=== PATIENT | female | born 1945 | race Caucasian/White ===

== ENCOUNTER 2017-07-02 17:15 | Inpatient (IN) | payer MEDICARE, MEDICAID ==
[2017-07-02] MEDS ORDERED: NAPROSYN500 MG PO (18:03)
[2017-07-02] MEDS ORDERED: VALTREX1000 MG PO (18:04)
[2017-07-02] MEDS ORDERED: ZYRTEC10 MG PO (18:04)
[2017-07-02] MEDS ORDERED: SYNTHROID75 MCG PO (18:05)
[2017-07-02] MEDS ORDERED: TOPROL XL50 MG PO (18:06)
[2017-07-02] MEDS ORDERED: CYMBALTA30 MG PO (18:07)
[2017-07-02] MEDS ORDERED: XANAX0.5 MG PO (18:08)
[2017-07-02] MEDS ORDERED: BIOTIN5 MG PO (18:11)
[2017-07-02] MEDS ORDERED: ELAVIL75 MG PO (18:13)
[2017-07-02] MEDS ORDERED: AMBIEN10 MG PO (18:14)
[2017-07-02] MEDS ORDERED: LYRICA150 MG PO (18:15)
[2017-07-02] MEDS ORDERED: ZOFRAN4 MG PO (18:17)
[2017-07-02] MEDS ORDERED: OXYBUTYNIN CHLOR5 MG PO (18:18)
[2017-07-02] MEDS ORDERED: BAYER CHEWABLE81 MG PO (18:23)
[2017-07-02] MEDS ORDERED: NORVASC5 MG PO (18:23)
[2017-07-02] MEDS ORDERED: LIPITOR20 MG PO (18:24)
[2017-07-02] MEDS ORDERED: PEPCID20 MG PO (18:25)
[2017-07-02] MEDS ORDERED: CLARITIN 10 MG10 MG PO (18:26)
[2017-07-02] MEDS ORDERED: LOVENOX40 MG/0.4 SC (18:27)
[2017-07-02] MEDS ORDERED: TOPROL XL25 MG PO (18:29)
[2017-07-02 20:25] LABS: BASOPHILS 0.3 % (0-2); EOSINOPHILS 4.4 % (0-7); HEMOGLOBIN 11.1 g/dL (12-16); IMMATURE GRANULOCYTES 0.2 % (0-5); LYMPHOCYTES 22.5 % (15-50); MCH 27.5 pg (26.0-34.0); MCHC 32.6 g/dL (31.0-37.0); MCV 84.4 fL (80.0-100.0); MEAN PLATELET VOLUME 10.5 fL (7.4-10.4); MONOCYTES 15.4 % (2-11); NEUTROPHILS 57.2 % (40-80); PLATELET COUNT 230 10x3/uL (130-400); RBC 4.03 10x6/uL (4.00-5.40); RDW 17.2 % (11.5-14.5); WBC 6.2 10x3/uL (4.8-10.8)
[2017-07-02 20:40] LABS: HEMOGLOBIN A1C 6.1 % (4.8-6.0)
[2017-07-02 20:46] LABS: ALBUMIN 3.5 g/dL (3.4-5.0); ANION GAP 13.7 mmol/L (8-16); BILIRUBIN - TOTAL 0.2 mg/dL (0.2-1.3); CALCIUM 8.7 mg/dL (8.5-10.1); CARBON DIOXIDE 26.5 mmol/L (21.0-32.0); CHOL - HDL RATIO 3.9 ratio (2.3-4.1); LDL-HDL RATIO 2.6 ratio (1.5-3.5); POTASSIUM - SERUM 4.2 mmol/L (3.5-5.1); PROTEIN - SERUM 6.6 g/dL (6.4-8.2); THYROID STIMULATING HORMONE 10.37 uIU/mL (0.36-3.74)
[2017-07-02 22:18] VITALS: BP 122/65; BMI 26.5
--- NOTE | 2017-07-03 02:47 | NUR ---
Patient arrived via EMS at 19:30 from , patient had attempted suicide by ingestion of 15 Ambian tablets, code word Nibbler, code status Full Code, family and physian aware of admition, consents signed and oriented to unit, contracted for safety, will continue to monitor.
[2017-07-03 08:42] VITALS: BP 101/51
--- NOTE | 2017-07-03 10:58 | NUR ---
B) PATIENT IS AWAKE AND ALERT, ORIENTED X 3, SHE DOES HAVE SOME CONFUSION AND POOR SHORT TERM MEMORY RECALL AND SAYS SHE SOMETIMES FORGETS. SHE ADMITS TO BEING DEPRESSED. SHE IS WONDERING ABOUT HER MEDICATIONS SHE BROUGHT FROM HOME, WILL CHECK ON THAT FOR HER. SHE AMBULATES INDEPENDENTLY, SHE IS SOCIALIZING WITH ANOTHER PATIENT CURRENTLY AND THEY ARE DISCUSSING BEING SINGLE LIVING ALONE. PATIENT CONTRACTS FOR NO SELF HARM, BUT SHE REMAINS SAD. I) PROVIDE PRESCRIBED MEDS. R) PATIENT IS COMPLIANT WITH MEDS AND UNIT MILIEU.
[2017-07-03 19:30] VITALS: BP 106/79
--- NOTE | 2017-07-04 04:33 | NUR ---
B) PATIENT IS ALERT AND ORIENTED, WORRIED ABOUT HER MEDICATION SHE HAD AT [facility], NO S.I. THIS SHIFT, CONTRACTS FOR SAFETY, I) ADMINISTERED SCHEDULED MEDICATIONS, MONITORED FOR SAFETY, R) MEDICATION COMPLIANT, WITHDRAWN, P) CONTINUE PLAN OF CARE.
[2017-07-04 07:00] VITALS: BP 120/75
[2017-07-04 08:00] VITALS: Wt 70.0 kg
--- NOTE | 2017-07-04 12:48 | PSY ---
PATIENT NAME:JEANNINE YEPEZ MEDICAL RECORD: [id number] : 49 LOCATION:KAILEE Radha5 ADMISSION DATE: 07/02/17 ACCOUNT: [id number] PSYCHIATRIC EVALUATION DATE OF EVALUATION: 07/03/17 Psychiatric Evaluation IDENTIFYING DATA: The patient is 72 years old and she is admitted to the hospital on a voluntary basis. CHIEF COMPLAINT: Depression. HISTORY OF PRESENT ILLNESS: The patient took an overdose of 15 Ambien tablets. She wrote a suicide note, woke up the next day and then called her daughter and told her, which she had done. The daughter called an ambulance. The patient was brought to the Emergency Room. The patient now says that she sorry she did this and regrets that and is quite she leave. She also endorses numerous neurovegetative depressive symptoms. She denies substance abuse. She denies psychotic symptoms. PAST MEDICAL HISTORY: Significant for fibromyalgia, hypothyroidism, hypertension, hysterectomy and appendectomy. PAST PSYCHIATRIC HISTORY: Significant for previous problems with depression and extensive outpatient treatment. Although she is not seriously about harming herself, this is the most serious act she is engaged in. ALLERGIES: PENICILLIN AND MORPHINE. CURRENT MEDICATIONS: Include Naprosyn, Valtrex, Synthroid, Cymbalta, Xanax, Elavil, biotin, Ambien, Lyrica, Zofran, Ditropan, Norvasc, aspirin, Lipitor, Pepcid, Claritin, Lovenox and Toprol. FAMILY HISTORY: Significant for cardiovascular disease, but none for psychiatric history by her account. SOCIAL HISTORY: The patient is retired. 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 She has been and 3 times. She has 6 kids and multiple grandchildren and great grandchildren. She lives alone. She is experiencing significant financial distress. MENTAL STATUS EXAMINATION: The patient is awake, alert and oriented to person, place and somewhat to time and situation. She is displaying a mood that is depressed and an affect that is constricted. Thought processes are circumstantial. Memory, concentration and abstraction abilities are moderately impaired and she denies any active intent to harm herself or others as well as overt psychotic symptoms. ASSETS: Supportive family members. LIABILITIES: Limited insight. DIAGNOSTIC IMPRESSION: AXIS I: Major depression, severe, recurrent without psychotic features. AXIS II: Deferred. AXIS III: Hypothyroidism, hypertension, osteoarthritis, gastroesophageal reflux disease, hyperlipidemia, and fibromyalgia. AXIS IV: Moderate stressors. AXIS V: Global assessment of functioning is 40. PLAN: At this time, the patient is admitted to the hospital secondary to a suicide attempt. She has a significant depressive illness. She will be treated with both mood stabilizing and antidepressant medications. Her long-term prognosis is guarded. TRANSINT:[id number] Voice Confirmation ID: [id number] DOCUMENT ID: [id number] DANIEL CASTELLANO MD at 1248 CC: [id number] DICTATION DATE: 07/03/17 1004 SINTER MACHINE OPERATOR: 07/03/17 1133 ADM IN [place] [id number] [place] [id number]
--- NOTE | 2017-07-04 16:38 | NUR ---
RECEIVED THIS AM SITTING IN CHAIR IN HALLWAY AT [facility]ES [facility]ATION.ALERT AND ORIENTED .DENIES SUICIDE IDEATION NOW.TEARFUL AT TIMES.ENCOURAGED TO TALK WITH NURSE ANYTIME SHE WANTS TOO.MISSES CATS AT HOME.WILL CONTINUE WITH PLAN OF CARE,MONITOR FOR CHANGES AND SAFETY.
[2017-07-04 19:11] LABS: APPEARANCE TURBID (CLEAR); COLOR YELLOW (YELLOW)
[2017-07-04 19:12] LABS: BILIRUBIN NEGATIVE (NEGATIVE); GLUCOSE NEGATIVE (NEGATIVE); KETONE NEGATIVE (NEGATIVE); LEUKOCYTE ESTERASE 2+ (NEGATIVE); NITRITE POSITIVE (NEGATIVE); PROTEIN TRACE mg/dL (NEGATIVE); UROBILINOGEN NORMAL (NORMAL)
[2017-07-04 19:26] LABS: BACTERIA MANY /hpf (NONE SEEN); EPITHELIAL CELLS 0-5 /hpf (0-5); GRANULAR CAST 0-5 /lpf (NONE SEEN); HYALINE CAST OCC /lpf (NONE SEEN); MUCUS <1+ /lpf (NONE SEEN); RED CELLS - URINE 0-5 /hpf (0-5); WHITE CELLS - URINE >50 /hpf (0-5)
[2017-07-04 19:27] LABS: AMORPHOUS SEDIMENT >1+ /lpf (NONE SEEN)
[2017-07-04 19:30] VITALS: BP 125/69
--- NOTE | 2017-07-04 22:42 | NUR ---
B) Social on unit with select peers. Complains of fibrmyalgia pain, given routine HS analgesics for same. Verbalized missing her cats. Requested to have a shower this evening but now has decided to wait until morning. Guarded with self disclosures. I) Administer medications as ordered, offer 1:1 to verbalize feelings, assess for suicidal ideation and intent. R) Oriented x 4, denies SI but does admit to feeling depressed. Not willing to talk about her stressors this evening. P) Continue to monitor per plan of care.
[2017-07-05 07:00] VITALS: BP 132/65
--- NOTE | 2017-07-05 11:08 | PN ---
PATIENT:JEANNINE YEPEZ MEDICAL RECORD: [id number] LOCATION:KAILEE Latonya112 ADMISSION DATE: 07/02/17 PROGRESS NOTE DATE OF SERVICE: 07/04/2017 SUBJECTIVE: The patient's case was discussed with staff. She has no new complaint. OBJECTIVE: The patient denies intent to harm herself or others. She generally tolerates her medicines well. She has no suicidal thoughts. She slept and ate well and is anxious to be discharged. I have only seen her twice. She did make a serious suicide attempt. I am not going to let her go home today and she did not insist upon it. I will reassess her tomorrow. TRANSINT:[id number] Voice Confirmation ID: [id number] DOCUMENT ID: [id number] DANIEL CASTELLANO MD at 1108 CC: [id number] DICTATION DATE: 07/04/17 1237 TOW TRUCK DRIVER: 07/04/172013 ADM IN [facility] [address] [place] [address]
[2017-07-05] MEDS ORDERED: SYNTHROID150 MCG PO (11:16)
[2017-07-05] MEDS ORDERED: CYMBALTA20 MG PO (11:16)
--- NOTE | 2017-07-05 12:29 | NUR ---
CALM, COOPERATIVE WITH CARE AND ASSESSMENT, SOCIAL WITH PEERS AND STAFF. PRESCRIBED MEDICATIONS GIVEN ORDERED. DENIES ANY SUICIDAL PLANS. WILL CONTINUE TO MONITOR. SCHEDULED FOR DISCHARGE HOME VIA [facility] TODAY. ALL DISCHARGE PAPERWORK REVIEWED WITH PATIENT AND COPY SENT WITH HER. BELONGINGS BAGGED AND ER CALLED FOR VALUABLES IN LOCKUP..
[2017-07-06 07:08] LABS: VITAMIN D 25 HYDROXY 21.6 ng/mL (30.0-100.0)
--- NOTE | 2017-07-06 10:17 | PN ---
PATIENT:JEANNINE YEPEZ MEDICAL RECORD: [id number] LOCATION:KAILEE Sánchez112 ADMISSION DATE: 07/02/17 PROGRESS NOTE DATE OF SERVICE: 07/05/2017 SUBJECTIVE: The patient's case was discussed with staff. She has no new complaint. OBJECTIVE: The patient has a euthymic mood and an appropriate affect. She is fully oriented. She is tolerating her medicines well. ASSESSMENT: Major depression. PLAN: The patient is substantially better since admission and she continues to deny that she would seek to harm herself. She is insisting upon discharge and clearly, she does not meet criteria for an involuntary stay. In addition to not meeting criteria for involuntary state, she is probably close to being ready to go just objectively. She does not want to wait until tomorrow. Based on this, I am just going to go ahead and let her go today. The only real issue I have is her refusal to go to outpatient psychiatric followup. She says that she thinks she will do well if she takes the medication she is on, agrees to no longer taking Ambien or Elavil as I have recommended. She says that if she feels like she needs some additional help, she will need to contact [facility], or she will go to the Emergency Room. This is not what I am recommending, but this is what the patient is willing to do. She does have full capacity to make reasonable informed consent decisions even at those decisions are not what I am going to recommend. I will discharge her today. TRANSINT:[id number] Voice Confirmation ID: [id number] DOCUMENT ID: [id number] DANIEL CASTELLANO MD at 1017 CC: [id number] DICTATION DATE: 07/05/17 1405 BUSINESS MACHINE OPERATOR: 07/05/17 1627 DIS IN 07/05/17 [place] [address] [place] [address]
[2017-07-06 12:11] LABS: FOLATE (FOLIC ACID) - SERUM 7.2 ng/mL (>3.0)
[2017-07-07 03:09] LABS: RAPID PLASMA REAGIN Non Reactive (Non Reactive)
== END 2017-07-05 15:30 | disposition home or self-care (01) | DRG 885 ==
LOC: D.PSYCH 17:15
PROVIDERS: ADMIT Psychiatry & Neurology Psychiatry
DX: F33.2 Major depressive disorder, recurrent severe without psychotic features (principal); T14.91 Suicide attempt; E03.9 Hypothyroidism, unspecified; I10 Essential (primary) hypertension; Z74.09 Other reduced mobility; M19.90 Unspecified osteoarthritis, unspecified site; K21.9 Gastro-esophageal reflux disease without esophagitis; E78.5 Hyperlipidemia, unspecified; M79.7 Fibromyalgia; G47.00 Insomnia, unspecified; D64.9 Anemia, unspecified; J30.9 Allergic rhinitis, unspecified

== ENCOUNTER 2019-01-24 22:31 | Inpatient (IN) | payer MEDICARE ==
[~2019-01-24 22:31] MED LIST: AMBIEN10 MG PO; BAYER CHEWABLE81 MG PO; BIOTIN5 MG PO; CLARITIN 10 MG10 MG PO; CYMBALTA20 MG PO; CYMBALTA30 MG PO; ELAVIL75 MG PO; LIPITOR20 MG PO; LOVENOX40 MG/0.4 SC; LYRICA150 MG PO; NAPROSYN500 MG PO; NORVASC5 MG PO; OXYBUTYNIN CHLOR5 MG PO; PEPCID20 MG PO; SYNTHROID150 MCG PO; SYNTHROID75 MCG PO; TOPROL XL25 MG PO; TOPROL XL50 MG PO; VALTREX1000 MG PO; XANAX0.5 MG PO; ZOFRAN4 MG PO; ZYRTEC10 MG PO
[2019-01-24] MEDS ORDERED: CELEBREX 100 M100 MG PO (23:03)
[2019-01-24] MEDS ORDERED: MONODOX100 MG PO (23:15)
[2019-01-24] MEDS ORDERED: FLUTICASONE PRO16 GM NASAL (23:16)
[2019-01-24] MEDS ORDERED: IPRAT-ALBUT 0.5-3 ML UPD (23:17)
[2019-01-24] MEDS ORDERED: SYNTHROID75 MCG PO (23:18)
[2019-01-24] MEDS ORDERED: DULERA 100 MCG8.8 GM INH (23:19)
[2019-01-24] MEDS ORDERED: PREDNISONE10 MG PO (23:19)
[2019-01-24] MEDS ORDERED: LYRICA150 MG PO (23:20)
[2019-01-25 00:05] LABS: HEMATOCRIT 33.2 % (36.0-48.0); HEMOGLOBIN 10.7 g/dL (12-16); LYMPHOCYTES 27.4 % (15-50); MCH 27.6 pg (26.0-34.0); MCHC 32.2 g/dL (31.0-37.0); MCV 85.8 fL (80.0-100.0); MEAN PLATELET VOLUME 10.8 fL (7.4-10.4); NEUTROPHILS 56.4 % (40-80); PLATELET COUNT 192 10x3/uL (130-400); RBC 3.87 10x6/uL (4.00-5.40); WBC 5.7 10x3/uL (4.8-10.8)
[2019-01-25 00:24] LABS: ALBUMIN 3.1 g/dL (3.4-5.0); ANION GAP 9.2 mmol/L (8-16); BILIRUBIN - TOTAL 0.48 mg/dL (0.2-1.3); CALCIUM 8.4 mg/dL (8.5-10.1); CARBON DIOXIDE 29.5 mmol/L (21.0-32.0); CREATININE - SERUM 0.8 mg/dL (0.6-1.3); POTASSIUM - SERUM 3.7 mmol/L (3.5-5.1); PROTEIN - SERUM 6.6 g/dL (6.4-8.2)
[2019-01-25 00:33] LABS: CHOL - HDL RATIO 2.6 ratio (2.3-4.1); LDL-HDL RATIO 1.2 ratio (1.5-3.5); MAGNESIUM - SERUM 2.3 mg/dL (1.8-2.4)
[2019-01-25 00:57] LABS: THYROID STIMULATING HORMONE 0.84 uIU/mL (0.36-3.74)
--- NOTE | 2019-01-25 01:06 | NUR ---
PT AMBULATED TO RESTROOM WITH ASSISTANCE AND PROVIDED URINE SAMPLE. URINE WAS SENT TO LAB. PT IS CALM AND COOPERATIVE WITH STAFF AT THIS TIME.
[2019-01-25 01:24] LABS: UDS - AMPHET NEGATIVE QUAL (NEGATIVE); UDS - BARB NEGATIVE QUAL (NEGATIVE); UDS - BENZO POSITIVE QUAL (NEGATIVE); UDS - COCAINE NEGATIVE QUAL (NEGATIVE); UDS - OPIATE NEGATIVE QUAL (NEGATIVE); UDS - PCP NEGATIVE QUAL (NEGATIVE); UDS - THC NEGATIVE QUAL (NEGATIVE)
[2019-01-25 01:32] LABS: APPEARANCE CLEAR (CLEAR); BACTERIA FEW /hpf (NONE SEEN); BILIRUBIN NEGATIVE (NEGATIVE); COLOR YELLOW (YELLOW); EPITHELIAL CELLS RARE /hpf (0-5); GLUCOSE NEGATIVE (NEGATIVE); KETONE NEGATIVE (NEGATIVE); NITRITE NEGATIVE (NEGATIVE); PROTEIN NEGATIVE (NEGATIVE); SPECIFIC GRAVITY 1.015 (1.005-1.020); UROBILINOGEN NORMAL (NORMAL); WHITE CELLS - URINE 0-5 /hpf (0-5)
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
[2019-01-25 02:34] VITALS: BP 146/75; BMI 25.7
[2019-01-25 08:15] VITALS: BMI 25.7
[2019-01-25 10:13] VITALS: Wt 65.8 kg
--- NOTE | 2019-01-25 10:15 | NUR ---
RECEIVED PATIENT IN DINING ROOM FOR B'FAST, ALERT, CALM, COOPERATIVE. NO MENTION OF SI THIS MORNING. NIGHT NURSE REPORTED THAT PATIENT STATED THAT SHE HAD NO SUICIDAL PLAN BUT IF SHE DID PLAN TO KILL SELF, SHE WOULD TAKE PILLS. STATED THAT SHE HAD ENOUGH PILLS AT HOME TO KILL A HORSE. PARTICIPATING IN GROUP THERAPY. CONT POC INCLUDING MEDICATIONS AND GROUP THERAPY DIRECTED.
[2019-01-25 19:53] VITALS: BP 138/74
--- NOTE | 2019-01-25 20:47 | NUR ---
RECEIVED IN DAYROOM. SITTING AND SOCIALIZING WITH HER PEERS. CALM AND COOPERATIVE WITH CARE AND ASSESSMENT. DENIES HAVING THOUGHTS OF SELF HARM AT THIS TIME. ENCOURAGE TO EXPRESS NEEDS. REDIRECT AND REORIENT NEEDED. CONTINUES TO SOCIALIZE WITH PEERS AT THIS TIME. CONTINUE PLAN OF CARE.
[2019-01-26 08:17] LABS: FOLATE (FOLIC ACID) - SERUM 13.3 ng/mL (>3.0)
[2019-01-26 08:23] VITALS: BP 96/56
--- NOTE | 2019-01-26 16:00 | NUR ---
ORIENTED X 4.DENIES THOUGHTS OF HARMING SELF NOW.STATES SHE ADMITTED SELF TO HOSPITAL BECAUSE SHE DIDN'T WANT TO TAKE ANY CHANCES THAT SHE MIGHT HURT SELF.STATES SHE FEELS MUCH BETTER NOW BECAUSE SHE IS GOING TO GET HELP WITH GETTING HER ANOTHER PLACE TO LIVE.STATES "I KNOW MY DAUGHTER WOULDN'T ACT THAT WAY IF I WASN'T LIVING THERE.IS COMPLIANT WITH STAFF AND MEDS.WILL CONTINUE WITH PLAN OF CARE,MONITOR FOR CHANGES AND SAFETY.
[2019-01-26 20:20] VITALS: BP 125/68
--- NOTE | 2019-01-27 04:42 | NUR ---
B) Patient is alert and oriented X 4, calm and cooperative this shift, I) Administered scheduled medications as ordered, monitored for safety, R) Mediation compliant, no S.I. this shift, P) Continue plan of care.
[2019-01-27 09:26] VITALS: BP 107/62
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
--- NOTE | 2019-01-27 16:55 | NUR ---
IS ORIENTED X 4.THIS AM WAS ARGUMENTIVE WITH THIS NURSE REGARDING LYRICA.NURSE ATTEMPTED TO EXPLAIN ORDERED SCHEDULE,BUT SHE WOULD NOT LET IT GO.ASSURED HER I WOULD HAVE SCHEDULE CHANGED TO EVERY 8 HOURS.COMPLIANT WITH MEDS.VISITS WITH PEERS.WILL CONTINUE WITH PLAN OF CARE,MONITOR FOR CHANGES AND SAFETY.
[2019-01-27 19:20] VITALS: BP 135/68
--- NOTE | 2019-01-27 21:31 | NUR ---
PATIENT HAS A FLAT AFFECT, INTERACTS WITH STAFF MINIMALLY, ORIENTED, DENIES S/I, COMPLIANT WITH MEDS, NO ADVERSE REACTION NOTED. ABLE TO MAKE NEEDS KNOWN, [facility] CONTACT. WILL FOLLOW POC
[2019-01-28 10:04] VITALS: BP 109/65
--- NOTE | 2019-01-28 10:11 | NUR ---
RECEIVED PATIENT IN DINING ROOM FOR B'FAST, ALERT, CALM, COOPERATIVE. STATED THAT SHE MUST HAVE GAINED WEIGHT SINCE HER ADMISSION BECAUSE HER PANTS ARE TIGHT. MEDS ADMIN PER ORDERS WITH COMPLETE MED COMPLIANCE NOTED. COOPERATIVE WITH GROUP AND STAFF REQUESTS. CONT POC INCLUDING MEDS AND GROUP THERAPY DIRECTED.
--- NOTE | 2019-01-28 10:47 | PN ---
PATIENT:JEANNINE YEPEZ MEDICAL RECORD: [id number] LOCATION:KAILEE Hanks113 ADMISSION DATE: 01/25/19 PROGRESS NOTE DATE OF SERVICE: 01/27/2019 SUBJECTIVE: The patient's case was discussed with staff. She has no new complaint. OBJECTIVE: The patient is disorganized with a depressed mood. She is very angry. Apparently, she was upset with one of the nurses today and said that she would jump out a window. She is on the first floor, but nevertheless she made this statement in a way that was directly implying that she wanted to hurt herself. When asked about this this afternoon, she says that she was just making a joke and a little angry. ASSESSMENT: Major depression. PLAN: The patient will be treated with Cymbalta at a slightly higher dose. I am certainly going to keep her through the weekend and will see her both Wednesday and Wednesday to assess her mood state and response to the increase in her medication that I am ordering today. TRANSINT:[id number] Voice Confirmation ID: [id number] DOCUMENT ID: [id number] DANIEL CASTELLANO MD at 1047 CC: [id number] DICTATION DATE: 01/27/19 1618 APPRENTICESHIP CONSULTANT: 01/27/19 2330 ADM IN [place] [id number] [place] [id number]
--- NOTE | 2019-01-28 19:26 | NUR ---
PATIENT HAS A VERY FLAT AFFECT, POOR EYE CONTACT, INTERACTS MINIMALLY WITH RESIDENTS, DENIES S/I. COMPLIANT WITH MEDS, NO ADVERSE REACTION NOTED. WILL FOLLOW POC
[2019-01-28 20:04] VITALS: BP 135/69
--- NOTE | 2019-01-29 09:00 | NUR ---
RECEIVED PATIENT IN DINING ROOM FOR B'FAST, ALERT, CALM, COOPERATIVE, DENIES SUICIDAL PLAN OR IDEATION. MEDS ADMIN PER ORDERS WITH COMPLETE MED COMPLIANCE NOTED. COOPERATIVE WITH GROUP AND STAFF. CONT POC INCLUDING MEDS AND GROUP THERAPY ORDERED.
--- NOTE | 2019-01-29 09:44 | PN ---
PATIENT:JEANNINE YEPEZ MEDICAL RECORD: [id number] LOCATION:KAILEE Hanks113 ADMISSION DATE: 01/25/19 PROGRESS NOTE DATE OF SERVICE: 01/28/2019 SUBJECTIVE: The patient's case was discussed with staff. She has no new complaint. OBJECTIVE: The patient denies intent to harm herself or others. She generally tolerates her medicines well. ASSESSMENT: No change in diagnoses. PLAN: Current medicines and therapies have been reviewed and will be maintained. Long-term prognosis is guarded. TRANSINT:[id number] Voice Confirmation ID: [id number] DOCUMENT ID: [id number] DANIEL CASTELLANO MD at 0944 CC: [id number] DICTATION DATE: 01/28/19 1106 BEAN WEIGHER: 01/28/19 1136 ADM IN [place] [id number] [place] [address]
[2019-01-29] MEDS ORDERED: CYMBALTA30 MG PO (10:01)
[2019-01-29] MEDS ORDERED: VITAMIN D5000 UNIT PO (10:01)
--- NOTE | 2019-01-29 10:30 | NUR ---
PATIENT'S DAUGHTER PRESENTED TO UNIT DEMANDING THAT HER MOTHER BE RELEASED TODAY. DAUGHTER STATED THAT SHE WAS NOT HAPPY WITH THE CARE THE PATIENT IS RECEIVING, IN PARTICULAR THE FACT THAT SHE HAS TO USE A COMMUNAL TOILET DURING THE DAY. DR CASTELLANO NOTIFIED AND WAS AGREEABLE WITH THE DISCHARGE SINCE THE DISCHARGE HAD ALREADY BEEN SET FOR WEDNESDAY.
--- NOTE | 2019-01-29 10:31 | NUR ---
EXPLAINED TO DAUGHTER THAT IT WOULD TAKE A LITTLE TIME TO PREPARE THE DISCHARGE. DAUGHTER AGREEABLE AND STATED THAT SHE WOULD GO HAVE LUNCH WITH HER BROTHER AND WOULD RETURN SHORTLY THEREAFTER TO FITNESS SUPERVISOR PATIENT.
--- NOTE | 2019-01-29 12:50 | NUR ---
PATIENT'S DAUGHTER HERE TO MOLDER FEEDER PATIENT. PERSONAL BELONGINGS RETURNED TO INCLUDING PURSE, CELL PHONE AND IN TUBE CONVERSION TECHNICIAN, AND CLOTHING THAT SHE WAS WEARING. PATIENT ADMITTED TO BRINGING NO EXTRA ARTICLES OF CLOTHING. ER ADMITTING CALLED TO VERIFY THAT THERE WERE NO ITEMS IN HOSPITAL SAFE. LOCKED CLOSET CHECKED FOR BELONGINGS AND NONE WERE FOUND. DISCHARGE TEACHING DONE WITH DAUGHTER VOICING UNDERSTANDING. NEW PRESCRIPTIONS PHONED IN TO [facility] DUE TO PATIENT'S REGULAR PHARMACY IN [place] BEING CLOSED ON SUNDAYS. UNABLE TO MAKE FOLLOW UP APPOINTMENT WITH DR WHITMORE WELL FAX ANY DISCHARGE PAPERWORK DUE TO THE OFFICE BEING CLOSED ON SUNDAYS. DAUGHTER INSTRUCTED TO MAKE FOLLOWUP APPT WITH DR WHITMORE FOR ONE WEEK FROM NOW WITH DAUGHTER VOICING UNDERSTANDING. PATIENT ASSISTED INTO W/C AND ESCORTED TO FRONT ENTRANCE OF HOSPITAL WHERE SHE WAS DISCHARGED HOME IN C/O DAUGHTER. VOICING UNDERSTANDING.
--- NOTE | 2019-01-30 15:21 | PN ---
PATIENT:JEANNINE YEPEZ MEDICAL RECORD: [id number] LOCATION:KAILEE Hanks113 ADMISSION DATE: 01/25/19 PROGRESS NOTE DATE OF SERVICE: 01/29/2019 SUBJECTIVE: The patient's case was discussed with staff. She has no new complaint. OBJECTIVE: The patient is fully oriented. She denies intent to harm herself or others. Her Mood is mildly depressed and there are no psychotic symptoms. ASSESSMENT: No change in diagnoses. PLAN: The patient will be transitioned out of the hospital tomorrow. That would assuming that this level of improvement continues. TRANSINT:[id number] Voice Confirmation ID: [id number] DOCUMENT ID: [id number] DANIEL CASTELLANO MD at 1521 CC: [id number] DICTATION DATE: 01/29/19 0959 WASHING MACHINE INSTALLER: 01/29/19 1237 DIS IN 01/29/19 [facility] [address] [place] [address]
== END 2019-01-29 12:50 | disposition home or self-care (01) | DRG 885 ==
LOC: D.ER 22:31 → D.PSYCH 01-25 01:29 → D.EDHOLD 01-25 01:29 → D.PSYCH 01-25 01:29
PROVIDERS: Family Medicine; ADMIT Psychiatry & Neurology Psychiatry; ATTEND Psychiatry & Neurology Psychiatry
DX: F33.2 Major depressive disorder, recurrent severe without psychotic features (principal); R45.851 Suicidal ideations; F51.04 Psychophysiologic insomnia; D64.9 Anemia, unspecified; M79.7 Fibromyalgia; E78.5 Hyperlipidemia, unspecified; K21.9 Gastro-esophageal reflux disease without esophagitis; M19.90 Unspecified osteoarthritis, unspecified site; E03.9 Hypothyroidism, unspecified; I10 Essential (primary) hypertension; F41.8 Other specified anxiety disorders; Z74.09 Other reduced mobility; J45.909 Unspecified asthma, uncomplicated; E55.9 Vitamin D deficiency, unspecified; E11.9 Type 2 diabetes mellitus without complications